=== PATIENT | male | born 2005 | race Caucasian/White ===

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

== ENCOUNTER 2024-04-25 14:30 | Outpatient (RCR) | payer BC, SELFPAY ==
[2024-02-20 15:33] VITALS: BMI 47.9
[2024-02-20 15:34] VITALS: BMI 47.9
== END 2024-05-06 09:33 | disposition home or self-care (01) ==
LOC: ANHDMC 14:30
PROVIDERS: PCP Family Medicine; Visit Provider Family Medicine
DX: R79.89 Other specified abnormal findings of blood chemistry (principal); R73.09 Other abnormal glucose; E66.01 Morbid (severe) obesity due to excess calories; Z71.3 Dietary counseling and surveillance
CPT/HCPCS: 97802